=== PATIENT | female | born 1945 | race Caucasian/White ===

== ENCOUNTER 2018-10-27 07:08 | Day surgery (SDC) | payer OTHER ==
[2018-10-24 09:09] VITALS: BMI 34.9
[2018-10-27 09:55] VITALS: TEMP 97.6
[2018-10-27 10:06] VITALS: PULSE 50
[2018-10-27 10:39] VITALS: BP 108/61
--- NOTE | 2018-10-28 17:03 | PATH ---
Surgical Pathology Report Patient Name: KENDRA SAUER [facility]. Rec. #: [id number] /Age/Gender: 1945 (Age: 72) / F Account: [id number] Location: [facility]-ENDOSCOPY Taken: 10/27/2018 Received: 10/27/2018 Reported: 10/28/2018 Physicians: Monique Templeton M.D. Specimen(s) Received A: SIGMOID POLYPS B: DISTAL TRANSVERSE COLON POLYP C: HEPATIC FLEXURE POLYP D: RIGHT COLON POLYPS E: CECUM POLYP F: RECTAL POLYP Clinical History Colon screening Postoperative diagnosis: Multiple colon polyps, diverticulosis Final Diagnosis A. SIGMOID COLON POLYPS, POLYPECTOMY: HYPERPLASTIC POLYP(S). B. DISTAL TRANSVERSE COLON POLYP, POLYPECTOMY: HYPERPLASTIC POLYP. C. COLON, HEPATIC FLEXURE, POLYP, POLYPECTOMY: HYPERPLASTIC POLYP. D. COLON, RIGHT, POLYPS, POLYPECTOMY: HYPERPLASTIC POLYP(S). E. CECUM, POLYP, BIOPSY: TUBULAR ADENOMA. F. RECTAL POLYP, BIOPSY: HYPERPLASTIC POLYP. Electronically Signed La Nena Chavira M.D. Gross Description A. Received in formalin, labeled "sigmoid polyps" are 2 hutton, irregular portions of soft tissue measuring 0.2 and 0.3 cm. in greatest dimension. The specimens are submitted in toto in one cassette. B. Received in formalin, labeled "distal transverse colon polyp" is a hutton, irregular portion of soft tissue measuring 0.5 cm. in greatest dimension. The specimen is submitted in toto in one cassette. C. Received in formalin, labeled "hepatic flexure polyp" are 2 hutton, irregular portions of soft tissue measuring 0.2 and 0.6 cm. in greatest dimension. The specimens are submitted in toto in one cassette. D. Received in formalin, labeled "right colon polyps" are 5 hutton, irregular portions of soft tissue ranging in size from 0.1-0.3 cm. in greatest dimension. The specimens are submitted in toto in one cassette. E. Received in formalin, labeled "cecum polyp" are 2 hutton, irregular portions of soft tissue measuring 0.1 and 0.4 cm. in greatest dimension. The specimens are submitted in toto in one cassette. F. Received in formalin, labeled "rectal polyp" is a hutton, irregular portion of soft tissue measuring 0.4 cm. in greatest dimension. The specimen is submitted in toto in one cassette. MLSZ/10/27/2018 sanrosalind10/27/2018
== END 2018-10-27 10:44 | disposition home or self-care (01) ==
LOC: JASU-ENDO 07:08
PROVIDERS: ATTEND Internal Medicine Gastroenterology
PROC: 0DBH8ZX Excision of Cecum, Via Natural or Artificial Opening Endoscopic, Diagnostic (ICD-10-PCS; 2018-10-27)
PROC: 0DBP8ZX Excision of Rectum, Via Natural or Artificial Opening Endoscopic, Diagnostic (ICD-10-PCS; 2018-10-27)
PROC: 0DBN8ZX Excision of Sigmoid Colon, Via Natural or Artificial Opening Endoscopic, Diagnostic (ICD-10-PCS; principal; 2018-10-27 09:00)
DX: Z12.11 Encounter for screening for malignant neoplasm of colon (principal); K62.1 Rectal polyp; D12.2 Benign neoplasm of ascending colon; D12.0 Benign neoplasm of cecum; D12.5 Benign neoplasm of sigmoid colon; D12.3 Benign neoplasm of transverse colon; K64.8 Other hemorrhoids; K57.30 Diverticulosis of large intestine without perforation or abscess without bleeding
CPT/HCPCS: 88305-TC

== ENCOUNTER 2022-03-06 04:54 | Day surgery (SDC) | payer OTHER ==
[2022-03-01 13:41] VITALS: BMI 35.3
[2022-03-06 08:52] VITALS: TEMP 97
[2022-03-06 09:49] VITALS: BP 117/72; PULSE 59; RESP 22
== END 2022-03-06 10:27 | disposition home or self-care (01) ==
LOC: JASU-ENDO 04:54
PROVIDERS: ATTEND Internal Medicine Gastroenterology
PROC: 0DBL8ZX Excision of Transverse Colon, Via Natural or Artificial Opening Endoscopic, Diagnostic (ICD-10-PCS; 2022-03-06)
PROC: 0DBN8ZX Excision of Sigmoid Colon, Via Natural or Artificial Opening Endoscopic, Diagnostic (ICD-10-PCS; 2022-03-06)
PROC: 0DBP8ZX Excision of Rectum, Via Natural or Artificial Opening Endoscopic, Diagnostic (ICD-10-PCS; principal; 2022-03-06 09:00)
DX: Z12.11 Encounter for screening for malignant neoplasm of colon (principal); Z86.010 Personal history of colon polyps; K62.1 Rectal polyp; D12.5 Benign neoplasm of sigmoid colon; D12.3 Benign neoplasm of transverse colon; K64.8 Other hemorrhoids; K57.30 Diverticulosis of large intestine without perforation or abscess without bleeding
CPT/HCPCS: 88305-TC

== ENCOUNTER → 2023-05-21 | Day surgery (SDC) | payer OTHER | END | disposition home or self-care (01) | LOC: FMAMMOTONE 12:53 | PROVIDERS: ATTEND Internal Medicine | PROC: 0HBU3ZX Excision of Left Breast, Percutaneous Approach, Diagnostic (ICD-10-PCS; principal; 2023-05-21) | DX: N60.12 Diffuse cystic mastopathy of left breast (principal); N60.22 Fibroadenosis of left breast; N64.89 Other specified disorders of breast; R92.0 Mammographic microcalcification found on diagnostic imaging of breast | CPT/HCPCS: 19081; 19082; 76098-TC-FY; 88305-TC; A4648 ==